=== PATIENT | male | born 1985 | race Caucasian/White ===

== ENCOUNTER → 2023-11-23 15:39 | Outpatient (CLI) | payer OTHER, SELFPAY | PROVIDERS: Visit Provider Nurse Practitioner Family | DX: Z22.322 Carrier or suspected carrier of Methicillin resistant Staphylococcus aureus (principal) | CPT/HCPCS: 87070; 87075; 87077; 87147; 87186; 87205 ==

== ENCOUNTER 2023-11-28 15:27 | Emergency (ER) | payer OTHER, SELFPAY ==
[2023-11-28] VITALS (14 sets, daily range): BP systolic 98–137; BP diastolic 58–77; PULSE 82–96; RESP 16–18; TEMP 36.6; O2SAT 97–99; BMI 26.4
--- NOTE | 2023-11-28 | DI.US.S_ITS ---
PROCEDURE: US EXTREMELY NONVASC UPPER RT INDICATIONS: Abrasion in right hand with edema and drainage. TECHNIQUE: Real-time scanning was performed of the right hand, with image documentation. COMPARISON: [facility], , US EXTREMITY NONVASC UPPER LT, 11/28/2023, 18:44. FINDINGS: Focused ultrasound examination of the dorsal aspect of right hand at the site of swelling and pain shows no discrete soft tissue mass or drainable fluid collection. IMPRESSION: No drainable abscess collection is seen in dorsal aspect of right hand at the reported area of swelling and pain. Dictated by: Tobias Del Cid M.D. on 11/29/2023 at 13:52 Approved by: Tobias Del Cid M.D. on 11/29/2023 at 13:53
--- NOTE | 2023-11-28 17:58 | ED.SKABFB ---
HPI - Skin/Abscess/Foreign Bdy General Chief complaint: Skin/Abscess/Foreign Body Stated complaint: L Arm Infection, Swelling in Hands Time Seen by Provider: 11/28/23 17:54 Source: patient Mode of arrival: Ambulatory Limitations: no limitations History of Present Illness HPI narrative: 38-year-old male with history of IV amphetamine and opiate use, currently on Suboxone presents by private vehicle for left arm swelling and right hand swelling. Patient admitted to [facility] in early October for arm infection. It was extensive up his forearm and his deltoid region and required OR I&D. Patient states that several days ago he went to the walk-in clinic for pain and a small amount of drainage from his wound site. He was started on antibiotics and a wound culture was obtained. 2 days ago he was contacted stating that the initial antibiotics were going to be changed based on culture sensitivities. Patient just started taking doxycycline. Patient was also requesting help with detox. He states that due to pain following his surgery last month he started using heroin again. Related Data Previous Rx's Medication Instructions Recorded Hydroxyzine Hydrochloride (#ATARAX) 25 mg PO TIDP ##60 07/14/11 clonazepam 2 mg tablet 2 mg PO Q DAY ##5 08/08/11 sulfamethoxazole 800 1 tab PO BID 7 days #14 tabs 11/23/23 mg-trimethoprim 160 mg tablet (Bactrim DS) doxycycline hyclate 100 mg capsule 100 mg PO BID MRSA 10 days #20 caps 11/25/23 Allergies Allergy/AdvReac Type Severity Reaction Status Date / Time No Known Drug Allergies Allergy Verified 11/28/23 15:39 Patient History Social History Smoking Status: Current every day smoker Smoking Status: Current every day smoker tobacco type: vaping Substance Use Type: heroin, opiates and methamphetamine Exam Initial Vital Signs Initial Vital Signs: Vital Signs Temperature 97.9 F 11/28/23 15:39 Pulse Rate 95 H 11/28/23 15:39 Respiratory Rate 16 11/28/23 15:39 Blood Pressure 137/67 11/28/23 15:39 Pulse Oximetry 98 11/28/23 15:39 Oxygen Delivery Method Room Air 11/28/23 15:39 Const: Awake, alert, no acute distress, nontoxic appearing Cardiac: regular rate, regular rhythm RESP: unlabored, clear bilaterally, no wheezing MSK: Mild swelling along dorsal left forearm Skin: Warm, Dry, small scab along incision site dorsal L forearm Neuro: AO x3, CN II-XII grossly intact, moves all extremities Course Orders Ordered: ED Orders 11/28/23 15:54 Consult to BOILER CONTROL TECHNICIAN - Video Engineer Stat 11/28/23 18:14 US extremity nonvasc upper lt Stat 11/28/23 18:25 Acetaminophen Stat CBC Auto Diff [Complete Blood Count AUTO DIFF] Stat CMP [Comprehensive Metabolic Panel] Stat Ethanol (ETOH) Stat Salicylate Stat TSH [Thyroid Stimulating Hormone] Stat 11/28/23 19:45 UA Complete [Urinalysis and Microscopic] Stat Urine Drug Screen, Rapid Stat Vital Signs Vital signs: Vital Signs - 8 hr 11/28/23 15:39 11/28/23 16:17 11/28/23 16:18 Temperature 97.9 F Pulse Rate 95 H 93 H Respiratory Rate 16 Blood Pressure 137/67 113/62 Pulse Oximetry 98 99 Oxygen Delivery Method Room Air 11/28/23 16:18 11/28/23 16:30 11/28/23 16:30 Temperature Pulse Rate 92 H 94 H Respiratory Rate Blood Pressure 117/77 Pulse Oximetry 98 98 Oxygen Delivery Method 11/28/23 17:00 11/28/23 17:01 11/28/23 17:01 Temperature Pulse Rate 90 89 Respiratory Rate Blood Pressure 105/64 Pulse Oximetry 98 97 Oxygen Delivery Method 11/28/23 17:30 11/28/23 17:31 11/28/23 17:31 Temperature Pulse Rate 94 H 94 H Respiratory Rate Blood Pressure 107/58 L Pulse Oximetry 98 98 Oxygen Delivery Method 11/28/23 18:00 11/28/23 18:00 11/28/23 18:30 Temperature Pulse Rate 82 83 Respiratory Rate Blood Pressure 98/67 Pulse Oximetry 98 98 Oxygen Delivery Method 11/28/23 19:00 11/28/23 19:30 11/28/23 21:44 Temperature Pulse Rate 87 87 93 H Respiratory Rate Blood Pressure Pulse Oximetry 97 97 98 Oxygen Delivery Method 11/28/23 21:45 11/28/23 21:45 Temperature Pulse Rate 96 H Respiratory Rate 18 Blood Pressure 122/69 Pulse Oximetry 97 Oxygen Delivery Method MDM - Skin/Abscess/Foreign Bdy Differential Diagnosis Differential diagnosis: Likely abscess of skin or subcutaneous tissue, viral exanthem and dermatophytosis Lab Data 11/28/23 18:25 11/28/23 18:25 Labs: Lab Results 11/28/23 11/28/23 11/28/23 Range/Units 18:25 19:45 19:45 WBC 6.5 (4.5-11.0) X10^3/uL RBC 4.21 L (4.5-5.9) X10^6/uL Hgb 12.6 L (13.5-17.5) g/dL Hct 37.4 L (41-53) % MCV 88.9 (80-100) fL MCH 30.0 (26-34) PG MCHC 33.7 (30-36) % RDW 14.0 (11.6-14.8) % Plt Count 285 (150-400) X10^3/uL Neut % (Auto) 62.3 (50-75) % Lymph % (Auto) 25.5 (25-40) % Tripp % (Auto) 8.9 (3-14) % Eos % (Auto) 2.7 (2-4) % Baso % (Auto) 0.6 (0-2) % Neut # (Auto) 4100 (5195-4865) /uL Lymph # (Auto) 1700 (7132-3430) /uL Tripp # (Auto) 600 (0-900) /uL Eos # (Auto) 200 (0-450) /uL Baso # (Auto) 0 (0-100) /uL Sodium 133 L (137-145) mmol/L Potassium 4.4 (3.4-5.1) mmol/L Chloride 100 (98-107) mmol/L Carbon Dioxide 31 (22-32) mmol/L BUN 14 (9-20) mg/dL Creatinine 0.74 (0.66-1.25) mg/dL Estimated GFR > 60 (>60) mL/min BUN/Creatinine Ratio 18.9 (6-22) Glucose 90 (70-100) mg/dL Calcium 8.8 (8.4-10.2) mg/dL Total Bilirubin 0.4 (0.2-1.3) mg/dL AST 36 (17-59) IU/L ALT 30 (<50) IU/L Alkaline Phosphatase 55 (38-126) U/L Total Protein 7.1 (6.3-8.2) g/dL Albumin 4.0 (3.5-5.0) g/dL Globulin 3.1 (1.7-4.1) g/dL Albumin/Globulin Ratio 1.3 (1.0-2.8) Urine Color Yellow Urine Appearance Clear Urine pH 7.0 Normal (4.5-8.0) Ur Specific Gustine 1.010 (1.000-1.035) Urine Protein Negative (Negative) Urine Glucose (UA) Negative (Negative) g/dL Urine Ketones Negative (NEGATIVE) Urine Occult Blood Negative (Negative) Urine Nitrate Negative (Negative) Urine Bilirubin Negative (NEGATIVE) Urine Urobilinogen 0.2 (0.2) E.U./dL Ur Leukocyte Esterase Negative (NEGATIVE) Urine RBC None seen (0-5/HPF) Urine WBC None seen (0-5/HPF) Ur Squamous Epith Cells None seen (0-5/HPF) Amorphous Sediment 1+ Urine Bacteria None seen (None) Ur Culture Indicated? Cult not indicated Vol Urine Centrifuged 10ml (spun) Salicylates < 1.0 (<20) mg/dL U Opiates 300ng/mL cut Positive H (Negative) Ur Oxycodone Screen Negative (Negative) Urine Methadone Screen Negative (Negative) Acetaminophen < 10 (10-30) ug/mL Ur Barbiturates Screen Negative (Negative) U Tricyclic Antidepress Negative (Negative) Ur Phencyclidine Scrn Negative (Negative) Ur Amphetamines Screen Positive H (Negative) U Methamphetamines Scrn Positive H (Negative) Ur MDMA Scrn (Ecstasy) Negative (Negative) U Benzodiazepines Scrn Negative (Negative) Urine Cocaine Screen Negative (Negative) U Marijuana (THC) Screen Negative (Negative) Urine Specific Gustine Normal (Normal) Ethyl Alcohol < 10 ( - 10) mg/dL Ur Creatinine Normal (Normal) Imaging Data US - DVT: Radiologist's Impression: ROCEDURE: US EXTREMITY NONVASC UPPER LT INDICATIONS: HX FOREARM INFECTION, ABSCESS? TECHNIQUE: Real-time scanning was performed of the left forearm, with image documentation. COMPARISON: [facility], US, US EXTREMELY NONVASC UPPER RT, 11/28/2023, 18:54. FINDINGS: Multiple grayscale and color Doppler images of the left forearm were acquired at the area of scarring and recent incision and drainage. Deep to the surgical scar and superficial to the underlying fascia, there is a loculated fluid collection measuring 5.7 x 0.5 x 2.5 cm with a calculated volume of approximately 3.7 mL. Mild adjacent vascularity. IMPRESSION: Complicated/loculated fluid collection noted deep to the skin and superficial to the underlying fascia of the left forearm musculature measuring 0.7 x 0.5 x 2.5 cm (3.7 mL) without significant hyperemia. This is noted in the area of prior surgical scar. Dictated by: Kiel Nelson M.D. on 11/28/2023 at 19:23 Approved by: Kiel Nelson M.D. on 11/28/2023 at 19:27 MDM Narrative Medical decision making narrative: Forearm pain and swelling with previous infection. No palpable fluctuance. Small amount of material able to be expressed from small opening in previous surgical site. Just started on abx based on culture sensitivity. While here patient requested help with detox for opiate use. Labs ordered for medical clearance. Small strip of fluid noted on US, hwoever since there is already some drainage then should be able to be improved with continuance of antibiotics and warm compresses to help express additional material. Laboratory work shows no acute abnormalities. Patient was able to discuss detox with [facility], who stated that they should have a bed for him tonight or tomorrow, depending on when patient can come down to them. Patient counseled to continue taking his antibiotics and she was warm compresses on his wound. He will go to [facility] tomorrow morning Discharge Plan Departure Patient Disposition: Home Clinical Impression: Skin infection Instructions: DI for Cellulitis -- Adult Activity Restrictions/Additional Instructions: Your ultrasound showed that you have a small strip of fluid underneath your skin, however this is small enough that this should resolve itself with antibiotics. Finish all of your antibiotics as prescribed. Use warm compresses on your scar to help any fluid escaped that needs to. Go to [facility] tomorrow morning Prescriptions: No Action sulfamethoxazole-trimethoprim [Bactrim DS] 800-160 mg tablet 1 tab PO BID 7 Days Qty: 14 0RF Hydroxyzine Hydrochloride (#ATARAX) 25 mg PO TIDP Qty: 60 1RF clonazepam 2 MG tablet 2 mg PO Q DAY Qty: 5 0RF doxycycline hyclate 100 mg capsule 100 mg PO BID 10 Days Qty: 20 0RF Stand Alone Forms: Patient Portal/API
--- NOTE | 2023-11-28 18:14 | DI.US.S_ITS ---
PROCEDURE: US EXTREMITY NONVASC UPPER LT INDICATIONS: HX FOREARM INFECTION, ABSCESS? TECHNIQUE: Real-time scanning was performed of the left forearm, with image documentation. COMPARISON: [facility], US, US EXTREMELY NONVASC UPPER RT, 11/28/2023, 18:54. FINDINGS: Multiple grayscale and color Doppler images of the left forearm were acquired at the area of scarring and recent incision and drainage. Deep to the surgical scar and superficial to the underlying fascia, there is a loculated fluid collection measuring 5.7 x 0.5 x 2.5 cm with a calculated volume of approximately 3.7 mL. Mild adjacent vascularity. IMPRESSION: Complicated/loculated fluid collection noted deep to the skin and superficial to the underlying fascia of the left forearm musculature measuring 0.7 x 0.5 x 2.5 cm (3.7 mL) without significant hyperemia. This is noted in the area of prior surgical scar. Dictated by: Kiel Nelson M.D. on 11/28/2023 at 19:23 Approved by: Kiel Nelson M.D. on 11/28/2023 at 19:27
[2023-11-28 18:36] LABS: Add Manual Diff / Slide Review NO; Basophils Absolute Auto 0 /uL (0-100); Basophils Percent Auto 0.6 % (0-2); Eosinophils Absolute Auto 200 /uL (0-450); Eosinophils Percent Auto 2.7 % (2-4); Hematocrit 37.4 % (41-53); Hemoglobin 12.6 g/dL (13.5-17.5); Lymphocytes Absolute Auto 1700 /uL (1100-4500); Lymphocytes Percent Auto 25.5 % (25-40); Mean Corpuscular HGB Conc 33.7 % (30-36); Mean Corpuscular Volume 88.9 fL (80-100); Monocytes Absolute Auto 600 /uL (0-900); Monocytes Percent Auto 8.9 % (3-14); Neutrophils Absolute Auto 4100 /uL (1500-7000); Neutrophils Percent Auto 62.3 % (50-75); Platelet Count 285 X10^3/uL (150-400); Red Blood Cell Count 4.21 X10^6/uL (4.5-5.9); White Blood Cell Count 6.5 X10^3/uL (4.5-11.0)
[2023-11-28 18:57] LABS: Alanine Aminotransferase 30 IU/L (<50); Albumin Globulin Ratio 1.3 (1.0-2.8); Alkaline Phosphatase 55 U/L (38-126); Aspartate Aminotransferase 36 IU/L (17-59); BUN Creatinine Ratio 18.9 (6-22); Bilirubin Total 0.4 mg/dL (0.2-1.3); Blood Urea Nitrogen 14 mg/dL (9-20); Calcium 8.8 mg/dL (8.4-10.2); Carbon Dioxide 31 mmol/L (22-32); Chloride 100 mmol/L (98-107); Estimated Glomerular Filt Rate > 60 mL/min (>60); Globulin 3.1 g/dL (1.7-4.1); Glucose 90 mg/dL (70-100); HEMOLYSIS 21 (0-50); Potassium 4.4 mmol/L (3.4-5.1); Sodium 133 mmol/L (137-145); Total Protein 7.1 g/dL (6.3-8.2)
[2023-11-28 19:51] LABS: Appearance Urine UA CLEAR; Bilirubin Urine UA NEGATIVE (NEGATIVE); Color Urine UA YELLOW; Glucose Urine UA NEGATIVE (Negative); Ketones Urine UA NEGATIVE (NEGATIVE); Leukocyte Esterase Urine UA NEGATIVE (NEGATIVE); Nitrite Urine UA NEGATIVE (Negative); Occult Blood Urine UA NEGATIVE (Negative); Protein Urine UA NEGATIVE (Negative); Urobilinogen Urine UA 0.2 E.U./dL (0.2)
[2023-11-28 19:57] LABS: Ur Creatinine Normal (Normal); Ur Specific Gravity Normal (Normal); Urine Amphetamines Positive (Negative); Urine Barbiturates Negative (Negative); Urine Benzodiazepines Negative (Negative); Urine Cocaine Negative (Negative); Urine MDMA Negative (Negative); Urine Methadone Negative (Negative); Urine Methamphetamines Positive (Negative); Urine Opiates Positive (Negative); Urine Oxycodone Negative (Negative); Urine Phencyclidine Negative (Negative); Urine THC Negative (Negative); Urine Tricyclic Antidepressant Negative (Negative); Urine pH Normal (Normal)
[2023-11-28 20:00] LABS: Amorphous Sediment Urine 1+; Bacteria Urine None Seen; Culture Indicated Urine Cult Not Indicated; RBC Urine None Seen (0-5/HPF); Squamous Epithelial Cell Urine None Seen (0-5/HPF); Urine Volume 10mL (spun); WBC Urine None Seen (0-5/HPF)
[2023-11-28 20:36] LABS: Acetaminophen < 10 ug/mL (10-30); Ethanol (ETOH) < 10 mg/dL; Salicylate < 1.0 mg/dL (<20)
[2023-11-28 22:00] LABS: Thyroid Stimulating Hormone 0.341 uIU/mL (0.47-4.68)
--- NOTE | 2023-11-29 11:14 | CM.SWNOTE ---
ED AGRICULTURE SCIENCE TEACHER Note (Late Entry) Patient is 38 y/o male who presents to ED due to concern for left arm and right arm swelling. Patient was at [facility] a few weeks ago due to arm infection requiring OR I&D and sutures. Patient had sutures removed from walk in clinic and prescribed antibiotics on 11/23/23. Patient endorses interest in ROSIO treatment. Patient states he went to [facility] yesterday with similar presentation but states that he used drugs yesterday and he left AMA. AGRICULTURE SCIENCE TEACHER enters room to meet with patient, patient presents as calm, coherent, cooperative and communicative. Patient presents as A/Ox4. Patient endorses hx of IV opiate and Methamphetamine use. Patient states his last use was yesterday when he used Heroin. Patient states he relapsed after the hospital stay. Patient states he was in custody of the [facility] and discharged to assisted from hospital and then released from assisted the next day. Patient states he had been getting Suboxone through his [place] provider. Patient endorses difficulty finding employment since his injuries and numbness in his hands. Patient states he is currently staying in [place] with family and being in [place] is a trigger to him. Patient endorses he is unsure if he can continue to stay clean due to life stressors, but he has support from family. AGRICULTURE SCIENCE TEACHER provides patient with lists of [facility] services and detox facilities. Patient endorses he will call [facility] and speak with his uncle about next steps. AGRICULTURE SCIENCE TEACHER provides patient with Medicaid information if patient needs insurance onces his [place] insurance is no longer current. AGRICULTURE SCIENCE TEACHER reviews this with charge master analyst and ED provider. Per EMR, patient did phone screening at [facility], was discharged upon medical clearance last night with plans to go to [facility] tomorrow morning. NELLY LesterSW
== END 2023-11-28 21:56 | disposition home or self-care (01) ==
PROVIDERS: Emergency Provider Emergency Medicine
DX: L08.9 Local infection of the skin and subcutaneous tissue, unspecified (principal)
CPT/HCPCS: 36415; 76882; 80053; 80305; 80320; 80329; 81001; 84443; 85025; 99283; 99284; G0480

== ENCOUNTER 2024-01-09 07:35 | Emergency (ER) | payer OTHER, MEDICAID, SELFPAY ==
[2024-01-09] VITALS (19 sets, daily range): BP systolic 111–167; BP diastolic 52–104; PULSE 55–106; RESP 18; TEMP 37.1; O2SAT 96–97; BMI 26.4
--- NOTE | 2024-01-09 07:41 | ED.GENADULT ---
HPI - General Adult <Earlene Webb DO - Last Filed: 01/10/24 18:05> General Chief complaint: Altered Mental Status Stated complaint: AMS/ hallucinating/smoked meth Time Seen by Provider: 01/09/24 07:39 Source: patient, EMS and police Mode of arrival: EMS History of Present Illness HPI narrative: 38-year-old male with history of IV amphetamine and opiate use who presents with complaint of being very agitated, reports of hallucinations although he states he has not currently hallucinating. Patient states that he did use some amphetamines in the last 36 hours but states nothing more recent he states he thinks the pancakes that he had recently had something in them. He does have prescription for Lisdexamfetamine with him that is recent and still has tablets in it. Patient is alert, he is conversant. He does have some redness on his face which he states is new. He states it started after a shower. He denies any other symptoms currently. States no other daily medications. He had prior surgery in his arm and had surgeries on his eye in the . Does not report any drug allergies. Does use tobacco daily, states does not drink alcohol, history of opiates and methamphetamine drug use. Patient arrives via EMS and with law enforcement family called because he was very agitated hallucinating but family. Patient had been sober for about a year per family. EMS and Law enforcement state he has not been aggressive or physical but has a very hard time sitting still. Glucose was normal in the field. Patient was tachycardic in the 117 but otherwise normal vitals with EMS. Related Data Home Medications Medication Instructions Recorded Confirmed buprenorphine 2 mg-naloxone 0.5 mg 2 mg sublingual DAILY 01/09/24 01/09/24 sublingual film lisdexamfetamine 50 mg capsule 50 mg PO DAILY 01/09/24 01/09/24 Previous Rx's Medication Instructions Recorded Hydroxyzine Hydrochloride (#ATARAX) 25 mg PO TIDP ##60 07/14/11 clonazepam 2 mg tablet 2 mg PO Q DAY ##5 08/08/11 Allergies Allergy/AdvReac Type Severity Reaction Status Date / Time No Known Drug Allergies Allergy Verified 11/28/23 15:39 Review of Systems <Earlene Webb DO - Last Filed: 01/10/24 18:05> Review of Systems ROS Unobtainable: All systems reviewed & are unremarkable except as noted in HPI and below Patient History <Earlene Webb DO - Last Filed: 01/10/24 18:05> Social History Smoking Status: Current every day smoker Smoking Status: Current every day smoker tobacco type: vaping Substance Use Type: heroin, opiates and methamphetamine Exam <Earlene Webb DO - Last Filed: 01/10/24 18:05> Narrative Exam Narrative: GEN: well nourished male, alert and oriented x 3, patient appears to be in moderate distress. Patient is agitated, has a hard time sitting still but is cooperative for exam and tries to answer questions. HEENT: Atraumatic, pupils are equal round reactive to light, extraocular movements are intact, nares are clear, there is no conjunctival pallor. Throat is clear without any exudates, erythema, tonsillar enlargement or uvular deviation, patient has some patchy erythema across his face particularly across the bridge of the nose and cheeks tracking down towards the jaw. No swelling, no edema of the face. No swelling of the lips or tongue. HEART: Tachycardic but regular rate and rhythm without murmur, clicks, rubs. LUNGS:Lungs clear to auscultation, no wheezes, rales, crackles, chest moves symmetrically ABD:bowel sounds normal, soft, non-tender, no guarding, rebound, rigidity, no masses noted, no hepatosplenomegaly :No CVA tenderness MSCL: Non-tender, no muscle atrophy, muscles strength 5/5 upper and lower extremities, full range of motion NEURO:CN 2-12 intact, sensation normal, patient is constantly moving but no obvious tardive dyskinesia, no clonus, no tremor or nystagmus PSYCH: No SI or HI Initial Vital Signs Initial Vital Signs: Vital Signs Temperature 98.8 F 01/09/24 07:36 Pulse Rate 106 H 01/09/24 07:36 Respiratory Rate 18 01/09/24 07:36 Blood Pressure 167/78 H 01/09/24 07:36 Pulse Oximetry 97 01/09/24 07:36 Oxygen Delivery Method Room Air 01/09/24 07:36 <Earlene Deras MD - Last Filed: 01/10/24 07:23> Initial Vital Signs Initial Vital Signs: Vital Signs Temperature 98.8 F 01/09/24 07:36 Pulse Rate 106 H 01/09/24 07:36 Respiratory Rate 18 01/09/24 07:36 Blood Pressure 167/78 H 01/09/24 07:36 Pulse Oximetry 97 01/09/24 07:36 Oxygen Delivery Method Room Air 01/09/24 07:36 Course <Earlene Webb DO - Last Filed: 01/10/24 18:05> Orders Ordered: Discontinued Medications Haloperidol (Haloperidol 5 Mg/Ml Vial) 10 mg IM NOW ONE Stop: 01/09/24 07:40 Last Admin: 01/09/24 07:43 Dose: 10 mg Documented By: TIERRA Ibuprofen (Ibuprofen 400 Mg Tablet) 800 mg PO NOW ONE Stop: 01/09/24 16:08 Last Admin: 01/09/24 16:16 Dose: 800 mg Documented By: IAM Lorazepam (Lorazepam 2 Mg/Ml Inj) 1 mg IM NOW ONE Stop: 01/09/24 07:40 Last Admin: 01/09/24 07:43 Dose: 1 mg Documented By: TIERRA Vital Signs Vital signs: Vital Signs - 8 hr 01/10/24 10:40 Pulse Rate 66 Blood Pressure 110/69 Pulse Oximetry 97 Oxygen Delivery Method Room Air <Earlene Deras MD - Last Filed: 01/10/24 07:23> Orders Ordered: Discontinued Medications Haloperidol (Haloperidol 5 Mg/Ml Vial) 10 mg IM NOW ONE Stop: 01/09/24 07:40 Last Admin: 01/09/24 07:43 Dose: 10 mg Documented By: TIERRA Ibuprofen (Ibuprofen 400 Mg Tablet) 800 mg PO NOW ONE Stop: 01/09/24 16:08 Last Admin: 01/09/24 16:16 Dose: 800 mg Documented By: IAM Lorazepam (Lorazepam 2 Mg/Ml Inj) 1 mg IM NOW ONE Stop: 01/09/24 07:40 Last Admin: 01/09/24 07:43 Dose: 1 mg Documented By: TIERRA Vital Signs Vital signs: Vital Signs - 8 hr 01/10/24 10:40 Pulse Rate 66 Blood Pressure 110/69 Pulse Oximetry 97 Oxygen Delivery Method Room Air Medical Decision Making <Earlene Webb DO - Last Filed: 01/10/24 18:05> Lab Data 01/09/24 07:55 01/09/24 07:55 Labs: Lab Results 01/09/24 01/09/24 Range/Units 07:55 21:22 WBC 11.1 H (4.5-11.0) X10^3/uL RBC 4.39 L (4.5-5.9) X10^6/uL Hgb 13.0 L (13.5-17.5) g/dL Hct 37.3 L (41-53) % MCV 84.9 (80-100) fL MCH 29.6 (26-34) PG MCHC 34.9 (30-36) % RDW 13.2 (11.6-14.8) % Plt Count 304 (150-400) X10^3/uL Neut % (Auto) 57.2 (50-75) % Lymph % (Auto) 25.9 (25-40) % Jack % (Auto) 13.2 (3-14) % Eos % (Auto) 3.1 (2-4) % Baso % (Auto) 0.6 (0-2) % Neut # (Auto) 6300 (9390-8016) /uL Lymph # (Auto) 2900 (0058-9933) /uL Jack # (Auto) 1500 H (0-900) /uL Eos # (Auto) 300 (0-450) /uL Baso # (Auto) 100 (0-100) /uL PT 11.6 (9.4-12.5) SECONDS INR 1.0 (0.9-1.3) APTT 24 L (25.1-36.5) SECONDS Sodium 140 (137-145) mmol/L Potassium 4.0 (3.4-5.1) mmol/L Chloride 104 (98-107) mmol/L Carbon Dioxide 28 (22-32) mmol/L BUN 19 (9-20) mg/dL Creatinine 1.03 (0.66-1.25) mg/dL Estimated GFR > 60 (>60) mL/min BUN/Creatinine Ratio 18.4 (6-22) Glucose 108 H (70-100) mg/dL Calcium 9.6 (8.4-10.2) mg/dL Total Bilirubin 1.0 (0.2-1.3) mg/dL AST 59 (17-59) IU/L ALT 31 (<50) IU/L Alkaline Phosphatase 47 (38-126) U/L Total Protein 7.7 (6.3-8.2) g/dL Albumin 4.5 (3.5-5.0) g/dL Globulin 3.2 (1.7-4.1) g/dL Albumin/Globulin Ratio 1.4 (1.0-2.8) Urine RBC 0-1/hpf (0-5/HPF) Urine WBC 0-1/hpf (0-5/HPF) Ur Squamous Epith Cells 0-1 /hpf (0-5/HPF) Urine Bacteria Occasional (0-1) (None) Urine Mucus 3+ H (Negative) Ur Culture Indicated? Cult not indicated Vol Urine Centrifuged 10ml (spun) Salicylates < 1.0 (<20) mg/dL U Opiates 300ng/mL cut Negative (Negative) Ur Oxycodone Screen Positive H (Negative) Urine Methadone Screen Negative (Negative) Acetaminophen < 10 (10-30) ug/mL Ur Barbiturates Screen Negative (Negative) U Tricyclic Antidepress Negative (Negative) Ur Phencyclidine Scrn Negative (Negative) Ur Amphetamines Screen Negative (Negative) U Methamphetamines Scrn Positive H (Negative) Ur MDMA Scrn (Ecstasy) Positive H (Negative) U Benzodiazepines Scrn Positive H (Negative) Urine Cocaine Screen Negative (Negative) U Marijuana (THC) Screen Negative (Negative) Urine pH Normal (Normal) Urine Specific [place] Normal (Normal) Ethyl Alcohol < 10 ( - 10) mg/dL Ur Creatinine Normal (Normal) Urine Dip Bedside Urine Glucose Negative Bedside Urine Bilirubin - Negative Bedside Urine Ketone - Negative Urine Specific [place] 1.03 Bedside Urine Occult Blood - Negative Bedside Urine pH 5.5 Bedside Urine Protein +/- 15 Bedside Urine Urobilinogen - Negative Bedside Urine Nitrite - Negative Bedside Urine Leukocytes - Negative Esterase Point of care testing: Urine Dip Bedside Urine Glucose Negative Bedside Urine Bilirubin - Negative Bedside Urine Ketone - Negative Urine Specific [place] 1.03 Bedside Urine Occult Blood - Negative Bedside Urine pH 5.5 Bedside Urine Protein +/- 15 Bedside Urine Urobilinogen - Negative Bedside Urine Nitrite - Negative Bedside Urine Leukocytes - Negative Esterase MDM Narrative Medical decision making narrative: 38-year-old male with reported amphetamine ingestion also has a prescription for and amphetamine which he may also has been taking recently. Patient presents agitated with having difficulty holding still, he does have some redness or rash on his face but looks somewhat like a contact dermatitis by the pattern. No other rash elsewhere. Lungs are clear, patient is tachycardic. Discussed with patient if we can give some medications IM to make him feel more comfortable. He is agreeable and was given IM Haldol and Ativan. Labs, white count is 11.1 hemoglobin of 13 platelets of 304. Coags are appropriate electrolytes are appropriate creatinine is 1.03 glucose is 108 LFTs are negative. Tylenol, salicylate ETOH is negative. UDS Recheck 0830 patient is sleeping. Patient has awakened around 1245 but still quite sleepy, he seems to be having little bit of hallucination agitation but has been much calmer. Continue to monitor until patient is more awake. We will offer rehab to patient if he is interested. 1525: Patient was still sleeping but easily awakened. Still slightly agitated but feeling improved. He is interested in rehab or detox if available. We will still need a urine sample for this. He is meeting with the UTILITY AIDE. ' Signed out to Dr. Deras while for re-evaluation and decision about whether to seek detox. 2145 -patient now awake and alert, answering questions appropriately. States that he was still sleepy but it was not appear to be under the influence of intoxicating substances. Continues to state that he would like to go to detox. Urine toxicology positive for oxycodone, methamphetamines, MDMA, benzodiazepines. Patient did get Ativan while he was in the emergency department here. Patient is otherwise medically cleared to go to a detox facility. military education coordinator contacted several detox facilities in the area. Most of them have available beds but no providers to review cases. They requested that we call back after 7:00 a.m. for available detox beds. Patient allowed to rest in ED overnight. Care of patient is signed back to Dr. Webb at 0700 01/10/2024 Dr. Webb: Patient signed out to myself. Patient is awake and eating breakfast much improved from yesterday, [facility] did intake with patient this morning around 0830am, awaiting response. 1015: Patient accepted at [facility], intake we will not be available until 1:00 a.m. on 01/11/2024. Patient can be discharged and presents there. They note he can not take his Vyvanse while there but can continue his Suboxone. Patient updated discharged with plan. Patient presents with standing. Has family that it is willing to help with transportation. <Earlene Deras MD - Last Filed: 01/10/24 07:23> Lab Data Labs: Lab Results 01/09/24 01/09/24 Range/Units 07:55 21:22 WBC 11.1 H (4.5-11.0) X10^3/uL RBC 4.39 L (4.5-5.9) X10^6/uL Hgb 13.0 L (13.5-17.5) g/dL Hct 37.3 L (41-53) % MCV 84.9 (80-100) fL MCH 29.6 (26-34) PG MCHC 34.9 (30-36) % RDW 13.2 (11.6-14.8) % Plt Count 304 (150-400) X10^3/uL Neut % (Auto) 57.2 (50-75) % Lymph % (Auto) 25.9 (25-40) % Jack % (Auto) 13.2 (3-14) % Eos % (Auto) 3.1 (2-4) % Baso % (Auto) 0.6 (0-2) % Neut # (Auto) 6300 (4486-0720) /uL Lymph # (Auto) 2900 (0068-1125) /uL Jack # (Auto) 1500 H (0-900) /uL Eos # (Auto) 300 (0-450) /uL Baso # (Auto) 100 (0-100) /uL PT 11.6 (9.4-12.5) SECONDS INR 1.0 (0.9-1.3) APTT 24 L (25.1-36.5) SECONDS Sodium 140 (137-145) mmol/L Potassium 4.0 (3.4-5.1) mmol/L Chloride 104 (98-107) mmol/L Carbon Dioxide 28 (22-32) mmol/L BUN 19 (9-20) mg/dL Creatinine 1.03 (0.66-1.25) mg/dL Estimated GFR > 60 (>60) mL/min BUN/Creatinine Ratio 18.4 (6-22) Glucose 108 H (70-100) mg/dL Calcium 9.6 (8.4-10.2) mg/dL Total Bilirubin 1.0 (0.2-1.3) mg/dL AST 59 (17-59) IU/L ALT 31 (<50) IU/L Alkaline Phosphatase 47 (38-126) U/L Total Protein 7.7 (6.3-8.2) g/dL Albumin 4.5 (3.5-5.0) g/dL Globulin 3.2 (1.7-4.1) g/dL Albumin/Globulin Ratio 1.4 (1.0-2.8) Urine RBC 0-1/hpf (0-5/HPF) Urine WBC 0-1/hpf (0-5/HPF) Ur Squamous Epith Cells 0-1 /hpf (0-5/HPF) Urine Bacteria Occasional (0-1) (None) Urine Mucus 3+ H (Negative) Ur Culture Indicated? Cult not indicated Vol Urine Centrifuged 10ml (spun) Salicylates < 1.0 (<20) mg/dL U Opiates 300ng/mL cut Negative (Negative) Ur Oxycodone Screen Positive H (Negative) Urine Methadone Screen Negative (Negative) Acetaminophen < 10 (10-30) ug/mL Ur Barbiturates Screen Negative (Negative) U Tricyclic Antidepress Negative (Negative) Ur Phencyclidine Scrn Negative (Negative) Ur Amphetamines Screen Negative (Negative) U Methamphetamines Scrn Positive H (Negative) Ur MDMA Scrn (Ecstasy) Positive H (Negative) U Benzodiazepines Scrn Positive H (Negative) Urine Cocaine Screen Negative (Negative) U Marijuana (THC) Screen Negative (Negative) Urine pH Normal (Normal) Urine Specific [place] Normal (Normal) Ethyl Alcohol < 10 ( - 10) mg/dL Ur Creatinine Normal (Normal) Urine Dip Bedside Urine Glucose Negative Bedside Urine Bilirubin - Negative Bedside Urine Ketone - Negative Urine Specific [place] 1.03 Bedside Urine Occult Blood - Negative Bedside Urine pH 5.5 Bedside Urine Protein +/- 15 Bedside Urine Urobilinogen - Negative Bedside Urine Nitrite - Negative Bedside Urine Leukocytes - Negative Esterase Point of care testing: Urine Dip Bedside Urine Glucose Negative Bedside Urine Bilirubin - Negative Bedside Urine Ketone - Negative Urine Specific [place] 1.03 Bedside Urine Occult Blood - Negative Bedside Urine pH 5.5 Bedside Urine Protein +/- 15 Bedside Urine Urobilinogen - Negative Bedside Urine Nitrite - Negative Bedside Urine Leukocytes - Negative Esterase MDM Narrative Medical decision making narrative: 38-year-old male with reported amphetamine ingestion also has a prescription for and amphetamine which he may also has been taking recently. Patient presents agitated with having difficulty holding still, he does have some redness or rash on his face but looks somewhat like a contact dermatitis by the pattern. No other rash elsewhere. Lungs are clear, patient is tachycardic. Discussed with patient if we can give some medications IM to make him feel more comfortable. He is agreeable and was given IM Haldol and Ativan. Labs, white count is 11.1 hemoglobin of 13 platelets of 304. Coags are appropriate electrolytes are appropriate creatinine is 1.03 glucose is 108 LFTs are negative. Tylenol, salicylate ETOH is negative. UDS Recheck 0830 patient is sleeping. Patient has awakened around 1245 but still quite sleepy, he seems to be having little bit of hallucination agitation but has been much calmer. Continue to monitor until patient is more awake. We will offer rehab to patient if he is interested. 1525: Patient was still sleeping but easily awakened. Still slightly agitated but feeling improved. He is interested in rehab or detox if available. We will still need a urine sample for this. He is meeting with the UTILITY AIDE. 2145 -patient now awake and alert, answering questions appropriately. States that he was still sleepy but it was not appear to be under the influence of intoxicating substances. Continues to state that he would like to go to detox. Urine toxicology positive for oxycodone, methamphetamines, MDMA, benzodiazepines. Patient did get Ativan while he was in the emergency department here. Patient is otherwise medically cleared to go to a detox facility. military education coordinator contacted several detox facilities in the area. Most of them have available beds but no providers to review cases. They requested that we call back after 7:00 a.m. for available detox beds. Patient allowed to rest in ED overnight. Care of patient is signed back to Dr. Webb at 0700 Discharge Plan Departure Patient Disposition: Home Clinical Impression: Amphetamine use Activity Restrictions/Additional Instructions: You has been accepted at [facility] in [place] but the next intake is at 0100 on 01/11/2024 or at 1am in the morning. Please present shortly before this time. Your paperwork as been sent in advance. You can continue his Suboxone but they will have you stop your Vyvanse while there. Please return if you have any new or concerning changes. Prescriptions: No Action Hydroxyzine Hydrochloride (#ATARAX) 25 mg PO TIDP Qty: 60 1RF clonazepam 2 MG tablet 2 mg PO Q DAY Qty: 5 0RF lisdexamfetamine 50 mg capsule 50 mg PO DAILY buprenorphine-naloxone 2-0.5 mg film 2 mg sublingual DAILY Stand Alone Forms: Patient Portal/API
[2024-01-09] MEDS: HALOPERIDOL 5 MG/ML VIAL 10 MG IM (07:43)
[2024-01-09] MEDS: LORazepam 2 MG/ML INJ 1 MG IM (07:43)
[2024-01-09 08:06] LABS: Add Manual Diff / Slide Review NO; Basophils Absolute Auto 100 /uL (0-100); Basophils Percent Auto 0.6 % (0-2); Eosinophils Absolute Auto 300 /uL (0-450); Eosinophils Percent Auto 3.1 % (2-4); Hematocrit 37.3 % (41-53); Lymphocytes Absolute Auto 2900 /uL (1100-4500); Lymphocytes Percent Auto 25.9 % (25-40); Mean Corpuscular HGB Conc 34.9 % (30-36); Mean Corpuscular Hemoglobin 29.6 PG (26-34); Mean Corpuscular Volume 84.9 fL (80-100); Monocytes Absolute Auto 1500 /uL (0-900); Monocytes Percent Auto 13.2 % (3-14); Neutrophils Absolute Auto 6300 /uL (1500-7000); Neutrophils Percent Auto 57.2 % (50-75); Platelet Count 304 X10^3/uL (150-400); Red Blood Cell Count 4.39 X10^6/uL (4.5-5.9); Red Cell Distribution Width 13.2 % (11.6-14.8); White Blood Cell Count 11.1 X10^3/uL (4.5-11.0)
[2024-01-09 08:14] LABS: Prothrombin Time 11.6 SECONDS (9.4-12.5)
[2024-01-09 08:16] LABS: PTT Partial Thromboplastin Tim 24 SECONDS (25.1-36.5)
[2024-01-09 08:17] LABS: Acetaminophen < 10 ug/mL (10-30); Alanine Aminotransferase 31 IU/L (<50); Albumin 4.5 g/dL (3.5-5.0); Albumin Globulin Ratio 1.4 (1.0-2.8); Alkaline Phosphatase 47 U/L (38-126); Aspartate Aminotransferase 59 IU/L (17-59); BUN Creatinine Ratio 18.4 (6-22); Blood Urea Nitrogen 19 mg/dL (9-20); Calcium 9.6 mg/dL (8.4-10.2); Carbon Dioxide 28 mmol/L (22-32); Chloride 104 mmol/L (98-107); Estimated Glomerular Filt Rate > 60 mL/min (>60); Ethanol (ETOH) < 10 mg/dL; Globulin 3.2 g/dL (1.7-4.1); Glucose 108 mg/dL (70-100); Salicylate < 1.0 mg/dL (<20); Sodium 140 mmol/L (137-145); Total Protein 7.7 g/dL (6.3-8.2)
[2024-01-09 08:18] LABS: HEMOLYSIS 60 (0-50)
[2024-01-09] MEDS: IBUPROFEN 400 MG TABLET 800 MG PO (16:16)
--- NOTE | 2024-01-09 18:26 | CM.SWNOTE ---
ED BANQUET CHEF Note Patient is 38 y/o male who presents to the ED via EMS due to concern for hallucinations 36 hours after amphetamines use. Patient also believed he had some pancakes with something in them. Patient has rx for Vyvanse and Suboxene. Patient has been unable to provide urine ample after being here for 10 hours. Patient continues to rest, patient was provided Ativan and Haldol upon presentation to ED to manage his agitation upon arrival. BANQUET CHEF enters room to meet with patient. Patient states I feel like I was hit by a train. Patient states that he knows he is in [place] at the hospital but did not know the day of the week or the date. Patient states he feels confused, and feels off. Patient denies visual or auditory hallucinations. Patient states he receives outpatient ROSIO tx from [facility]. Patient states he may be interested in detox. BANQUET CHEF explains that urine sample will need to be provided, patient was provided several beverages to provide sample. Patient ate some food as well but continues to fall back asleep. Patient had similar presentation to ED on 11/28/23 and his discharge plan was to go to [facility] the next day, it is undetermined at this time if patient sought out detox from [facility]. It is the opinion of this BANQUET CHEF that patient is not at baseline and unable to discuss disposition at this time. Patient states his uncle could give him a ride upon d/c. BANQUET CHEF calls [facility] and it is reported that they do not have beds tonight but will have beds for tomorrow morning. Patient can do phone screening when he is able to do so. BANQUET CHEF reviews patient with ED provider, it is determined that patient will be re-assessed when he is more A/O and awake. Plan: ED provider to determine disposition upon medical clearance, ED team to seek detox for patient if patient seeks treatment. Kelli Marcum, COPYRIGHT CLERK
[2024-01-09 21:34] LABS: Ur Creatinine Normal (Normal); Ur Specific Gravity Normal (Normal)
[2024-01-09 21:35] LABS: Urine Methamphetamines Positive (Negative)
[2024-01-09 21:36] LABS: UR Morphine/Opiate cutoff 300 Negative (Negative); Urine Amphetamines Negative (Negative); Urine Barbiturates Negative (Negative); Urine Benzodiazepines Positive (Negative); Urine Cocaine Negative (Negative); Urine MDMA Positive (Negative); Urine Methadone Negative (Negative); Urine Phencyclidine Negative (Negative); Urine Tetrahydrocannabinol Negative (Negative); Urine Tricyclic Antidepressant Negative (Negative); Urine pH Normal (Normal)
[2024-01-09 21:37] LABS: Urine Oxycodone Positive (Negative)
[2024-01-09 21:44] LABS: Bacteria Urine Occasional (0-1); Culture Indicated Urine Cult Not Indicated; Mucus Urine 3+ (Negative); RBC Urine 0-1/HPF (0-5/HPF); Squamous Epithelial Cell Urine 0-1 /HPF (0-5/HPF); Urine Volume 10mL (spun); WBC Urine 0-1/HPF (0-5/HPF)
--- NOTE | 2024-01-09 22:41 | PC.NURSE ---
Intake packet faxed to [facility] @ [phone]. Pt is on the portable phone speaking with intake at this time
--- NOTE | 2024-01-09 22:49 | PC.NURSE ---
Rayna spoke with Intake at [facility] after Pt finished phone screening. Intake stated that the provider would review the packet and call the ED in the morning after 0700 regarding acceptance to their facility
--- NOTE | 2024-01-09 22:52 | PC.NURSE ---
Rayna contacted [facility] regarding beds for detox. Facility stated they have beds but, they are not doing intake screenings until after 0700 01/10/24
--- NOTE | 2024-01-09 23:06 | PC.NURSE ---
Intake packet sent to [facility] for review for Pt seeking detox
--- NOTE | 2024-01-10 01:38 | PC.NURSE ---
Contacted [facility] to follow up on status of intake. Intake informed this Tech that the Pt does not meet criteria for their facility at this time
--- NOTE | 2024-01-10 03:50 | PC.NURSE ---
received call from [facility], declined patient stating he would be a better fit at one of our sister facilities, either [facility] or [facility]
[2024-01-10 06:07] VITALS: BP 113/60; PULSE 57; RESP 18; O2SAT 96
--- NOTE | 2024-01-10 07:21 | PC.NURSE ---
Pt appears to sleeping with eyes closed and slow steady snoring.
--- NOTE | 2024-01-10 07:22 | PC.NURSE ---
did not awake patient for reassessment at this time. Pt with eyes closed and slow steady breathing.
--- NOTE | 2024-01-10 08:16 | PC.NURSE ---
This STRATEGIC PARTNERSHIP SPECIALIST called [facility] for pt placement at 0745. Intake stated bed are available today. Intake advised that patient call on their own for voluntary intake process and work up on patient be faxed to their intake. Intake packet faxed at [phone]. Pt called on hospital cellphone and did intake screening at 0825. Pt finished phone call and stated that intake will call back.
[2024-01-10 10:40] VITALS: BP 110/69; PULSE 66; O2SAT 97
== END 2024-01-10 10:40 | disposition home or self-care (01) ==
PROVIDERS: Emergency Provider Emergency Medicine
DX: F15.90 Other stimulant use, unspecified, uncomplicated (principal); R00.0 Tachycardia, unspecified
CPT/HCPCS: 36415; 80053; 80305; 80320; 80329; 81003; 81015; 85025; 85610; 85730; 96372; 99283; G0480; J1630; J2060